=== PATIENT | male | born 1995 | race African-American/Black ===

== ENCOUNTER 2017-09-02 20:56 | Emergency (ER) | payer SELFPAY ==
[~2017-09-02] VITALS: Ht 177.8 cm; Wt 103.0 kg
[2017-09-02] MEDS ORDERED: IBUPROFEN600 MG PO (22:45)
[2017-09-02 23:15] VITALS: BP 129/73
== END 2017-09-02 23:15 | disposition home or self-care (01) | DRG 605 ==
LOC: ED 20:56
DX: S60.416A Abrasion of right little finger, initial encounter (principal); F17.210 Nicotine dependence, cigarettes, uncomplicated; W22.09XA Striking against other stationary object, initial encounter; Y93.89 Activity, other specified; Y92.89 Other specified places as the place of occurrence of the external cause; Y99.0 Civilian activity done for income or pay